=== PATIENT | male | born 1990 | race Caucasian/White ===

== ENCOUNTER 2020-04-26 18:37 | Emergency (ER) | payer OTHER, SELFPAY ==
[2020-04-26 18:41] VITALS: BP 153/94; PULSE 93; RESP 17; TEMP 35.9; O2SAT 97
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
[2020-04-26 20:09] LABS: HIV 1/2 Ab P24 Ag Result Negative (Negative)
[2020-04-26 20:57] LABS: Hepatitis B Surface Antigen Negative (Negative)
[2020-04-26 21:02] LABS: HAV RESULT Negative (Negative); Hepatitis B Core IgM Result Negative (Negative)
[2020-04-26 21:14] LABS: Hepatitis C Virus Antibody Negative (Negative)
== END 2020-04-26 19:38 | disposition home or self-care (01) ==
LOC: ANHED 19:21
PROVIDERS: Emergency Provider Emergency Medicine
DX: S60.512A Abrasion of left hand, initial encounter (principal); Y04.1XXA Assault by human bite, initial encounter
CPT/HCPCS: 36415; 80074; 86703; 99283; G0432

== ENCOUNTER 2023-12-28 14:35 | Outpatient (CLI) | payer OTHER, SELFPAY ==
[2023-12-28 15:00] LABS: Basophils Percent Auto 0.7 % (0.2-1.2); Eosinophils Absolute Auto 0.1 K/mm3 (0-0.3); Hematocrit 49.8 % (42.0-52.0); Hemoglobin 18.1 g/dL (14.0-18.0); Immature Granulocyte Absolute 0.01 K/mm3 (0.00-0.031); Immature Granulocyte Percent A 0.2 % (0-0.5); Lymphocytes Absolute Auto 1.45 K/mm3 (0.9-3.2); Lymphocytes Percent Auto 25.1 % (18.3-44.2); Mean Corpuscular HGB Conc 36.3 g/dl (32-36); Mean Corpuscular Hemoglobin 32.2 pg (26-34); Mean Corpuscular Volume 88.6 fl (80-100); Mean Platelet Volume 10.3 fl (7.4-10.4); Monocytes Absolute Auto 0.3 K/mm3 (0.1-0.6); Monocytes Percent Auto 5.4 % (2.6-8.5); Neutrophils Absolute Auto 3.9 K/mm3 (1.3-6.7); Neutrophils Percent Auto 67.6 % (45.5-73.1); Platelet Count Result 142 k/mm3 (150-375); Red Blood Count 5.62 M/mm3 (4.6-6.20); Red Cell Distribution Width 11.9 % (11.5-14.5); White Blood Count 5.8 K/mm3 (4.5-10.0)
[2023-12-28 16:54] LABS: Iron 105 ug/dL (49-181)
[2023-12-28 16:56] LABS: Alanine Aminotransferase 30 U/L (6-50); Albumin Level 4.8 g/dL (3.5-5.1); Alkaline Phosphatase 57 U/L (38-126); Anion Gap 12 mmol/L (4-12); Aspartate Amino Transferase 22 U/L (17-59); Bilirubin,Total 0.8 mg/dL (0.2-1.3); Blood Urea Nitrogen 27 mg/dL (9-20); Calcium 9.6 mg/dL (8.4-10.2); Carbon Dioxide 27 mmol/L (22-30); Chloride 101 mmol/L (98-107); Estimated Glomerular Filt Rate 58; Glucose 91 mg/dL (65-110); Potassium 4.2 mmol/L (3.4-5.0); Sodium 140 mmol/L (137-145)
[2023-12-28 17:05] LABS: Percent Iron Saturation 36 % (20-50)
[2023-12-28 18:03] LABS: Folic Acid 11.9 ng/mL (2.76->20)
[2024-01-01 10:09] LABS: Methylmalonic Acid 153 nmol/L (55-335)
[2024-01-04 11:22] LABS: Soluble Transferrin Receptor 2.16 mg/L (0.76-1.76)
[2024-01-04 19:58] LABS: Platelet Antibody, Direct NEGATIVE (NEGATIVE)
== END 2023-12-28 14:36 | disposition home or self-care (01) ==
LOC: ANHLAB 14:37
PROVIDERS: Nurse Practitioner Family; Visit Provider Internal Medicine Hematology & Oncology
DX: D69.6 Thrombocytopenia, unspecified (principal); D50.9 Iron deficiency anemia, unspecified
CPT/HCPCS: 36415; 80053; 82607; 82728; 82746; 83540; 83550; 83921; 84238; 85025; 86023

== ENCOUNTER 2024-01-11 10:32 | Outpatient (CLI) | payer OTHER, SELFPAY ==
--- NOTE | ~2024-01-11 | US_ITS ---
Abdominal Sonogram: Real-time sonographic imaging of the abdomen was performed. Clinical History: Thrombocytopenia Findings: The liver appears normal with no evidence of mass lesion or bile duct dilatation. Main por isacc vein demonstrates normal direction of flow. The spleen is mildly enlarged, measuring 14.3 cm in l ength. The gallbladder is well distended, and appears normal with no evidence of gallstone or wall t hickening. The common bile duct measures 4 mm. The visualized pancreas, aorta, and IVC are unremarka ble. The right kidney measures 11.5 cm in length and the left kidney measures 11.2 cm. There is no hydronephrosis or renal calculus. Impression: Mild splenomegaly. Reviewed, dictated and finalized at location . Impression: Mild splenomegaly.
== END 2024-01-11 10:33 | disposition home or self-care (01) ==
LOC: ANHIMG 10:36
PROVIDERS: PCP Nurse Practitioner Family; Visit Provider Nurse Practitioner Family
DX: R16.1 Splenomegaly, not elsewhere classified (principal); D69.6 Thrombocytopenia, unspecified
CPT/HCPCS: 76700

== ENCOUNTER 2024-07-13 11:13 | Outpatient (CLI) | payer OTHER, SELFPAY ==
[2024-07-13 11:27] LABS: Basophils Percent Auto 0.5 % (0.2-1.2); Eosinophils Absolute Auto 0.1 K/mm3 (0-0.3); Eosinophils Percent Auto 1.1 % (0-4.4); Hematocrit 47.8 % (42.0-52.0); Hemoglobin 17.3 g/dL (14.0-18.0); Immature Granulocyte Absolute 0.01 K/mm3 (0.00-0.031); Immature Granulocyte Percent A 0.2 % (0-0.5); Immature Platelet Fraction Pct 4.2 % (0.9-11.2); Lymphocytes Absolute Auto 1.56 K/mm3 (0.9-3.2); Lymphocytes Percent Auto 28.5 % (18.3-44.2); Mean Corpuscular HGB Conc 36.2 g/dl (32-36); Mean Corpuscular Hemoglobin 31.9 pg (26-34); Mean Platelet Volume 10.1 fl (7.4-10.4); Monocytes Absolute Auto 0.4 K/mm3 (0.1-0.6); Monocytes Percent Auto 6.6 % (2.6-8.5); Neutrophils Absolute Auto 3.5 K/mm3 (1.3-6.7); Neutrophils Percent Auto 63.1 % (45.5-73.1); Platelet Count Result 141 k/mm3 (150-375); Red Blood Count 5.43 M/mm3 (4.6-6.20); White Blood Count 5.5 K/mm3 (4.5-10.0)
[2024-07-13 11:28] LABS: Blood Urea Nitrogen 24 mg/dL (8-26); Carbon Dioxide 27 mmol/L (22-30); Chloride 103 mmol/L (98-109); Estimated Glomerular Filt Rate 54; Glucose 97 mg/dL (70-105); Ionized Calcium (POC) 1.27 mmol/L (1.11-1.31); Potassium 4.1 mmol/L (3.5-4.9); Sodium 141 mmol/L (138-146)
--- OUTSIDE RECORDS SUMMARY | 2024-07-13 11:50 | XMS_ITS | Data Portability ---
Author Organization [facility] [employer], Main Office Address [address] [place] [address] Assessment No assessment recorded. Plan of Treatment Reminders Order Date Submit Date Provider Last Modified By Organization Details Last Modified Time Details Appointments None recorded . Lab lipid panel, serum 024 10/26/[address] (Lab), [address] [place], [address], 4 08:03:07 CMP, serum or plasma 024 10/26/[address] (Lab), [address] [place], [address], 4 08:03:07 TSH, serum or plasma 024 10/26/[address] (Lab), [address] [place], [address], 4 08:03:08 glycohem oglobin, total, blood 024 10/26/[address] (Lab), [address] [place], [address], 4 08:03:07 CBC 024 10/26/[address] (Lab), [address] [place], [address], 4 08:03:08 Referral None recorded . Procedures None recorded . Surgeries None recorded . Imaging None recorded . Medication Orders None recorded . Patient TargetsNo targets recorded. Patient InstructionsNo instructions recorded. Reason for Referral None Reported. Results Created Date Observation Date Name Description Value Unit Range Abnormal Flag Note LastModifiedBy Organization Detail LastModifiedTime 10/25/19 24 10/28/2023 CBC WITH DIFFE RENTI AL/PL ATELE T WBC 5.5 x10e3 /uL 3.4-10 .8 Not Available [facility] ([facility]) [address] [place], [address], 11/02/2023 03:07:47 10/25/19 24 10/28/2023 CBC WITH DIFFE RENTI AL/PL ATELE T RBC 5.58 x10e6 /uL 4.14-5 .80 Not Available [facility] ([facility]) [address] [place], [address], 11/02/2023 03:07:47 10/25/19 24 10/28/2023 CBC WITH DIFFE RENTI AL/PL ATELE T hemoglobin 18.0 g/dL 13.0-1 7.7 above high normal Not Available [facility] ([facility]) [address] [place], [address], 11/02/2023 03:07:47 10/25/19 24 10/28/2023 CBC WITH DIFFE RENTI AL/PL ATELE T hematocrit 50.0 % 37.5-5 1.0 Not Available [facility] ([facility]) [address] [place], [address], 11/02/2023 03:07:47 10/25/19 24 10/28/2023 CBC WITH DIFFE RENTI AL/PL ATELE T MCV 90 fL 79-97 Not Available [facility] ([facility]) [address] [place], [address], 11/02/2023 03:07:47 10/25/19 24 10/28/2023 CBC WITH DIFFE RENTI AL/PL ATELE T MCH 32.3 pg 26.6-3 3.0 Not Available [facility] ([facility]) [address] [facility], [place], [address], 11/02/2023 03:07:47 10/25/19 24 10/28/2023 CBC WITH DIFFE RENTI AL/PL ATELE T MCHC 36.0 g/dL 31.5-3 5.7 above high normal Not Available [facility] ([facility]) [address] [facility], [place], [address], 11/02/2023 03:07:47 10/25/19 24 10/28/2023 CBC WITH DIFFE RENTI AL/PL ATELE T RDW 12.6 % 11.6-1 5.4 Not Available [facility] ([facility]) [address] [facility], [place], [address], 11/02/2023 03:07:47 10/25/19 24 10/28/2023 CBC WITH DIFFE RENTI AL/PL ATELE T platelets 132 x10e3 /uL 150-45 0 below low normal Not Available [facility] ([facility]) [address] [facility], [place], [address], 11/02/2023 03:07:47 10/25/19 24 10/28/2023 CBC WITH DIFFE RENTI AL/PL ATELE T neutrophils 65 % not estab. Not Available [facility] ([facility]) [address] [facility], [place], [address], 11/02/2023 03:07:47 10/25/19 24 10/28/2023 CBC WITH DIFFE RENTI AL/PL ATELE T lymphs 26 % not estab. Not Available [facility] ([facility]) [address] [facility], [place], [address], 11/02/2023 03:07:47 10/25/19 24 10/28/2023 CBC WITH DIFFE RENTI AL/PL ATELE T monocytes 6 % not estab. Not Available [facility] ([facility]) [address] [facility], [place], [address], 11/02/2023 03:07:47 10/25/19 24 10/28/2023 CBC WITH DIFFE RENTI AL/PL ATELE T eos 1 % not estab. Not Available [facility] ([facility]) [address] [facility], [place], [address], 11/02/2023 03:07:47 10/25/19 24 10/28/2023 CBC WITH DIFFE RENTI AL/PL ATELE T basos 1 % not estab. Not Available [facility] ([facility]) [address] [place], [address], 11/02/2023 03:07:47 10/25/19 24 10/28/2023 CBC WITH DIFFE RENTI AL/PL ATELE T immature cells MEETING COORDINATOR Not Available [facility] ([facility]) [address] [place], [address], 11/02/2023 03:07:47 10/25/19 24 10/28/2023 CBC WITH DIFFE RENTI AL/PL ATELE T neutrophils (absolute) 3.7 x10e3 /uL 1.4-7. 0 Not Available [facility] ([facility]) [address] [place], [address], 11/02/2023 03:07:47 10/25/19 24 10/28/2023 CBC WITH DIFFE RENTI AL/PL ATELE T lymphs (absolute) 1.4 x10e3 /uL 0.7-3. 1 Not Available [facility] ([facility]) [address] [place], [address], 11/02/2023 03:07:47 10/25/19 24 10/28/2023 CBC WITH DIFFE RENTI AL/PL ATELE T monocytes(ab solute) 0.3 x10e3 /uL 0.1-0. 9 Not Available [facility] ([facility]) [address] [facility], [place], [address], 11/02/2023 03:07:47 10/25/19 24 10/28/2023 CBC WITH DIFFE RENTI AL/PL ATELE T eos (absolute) 0.0 x10e3 /uL 0.0-0. 4 Not Available [facility] ([facility]) [address] [facility], [place], [address], 11/02/2023 03:07:47 10/25/19 24 10/28/2023 CBC WITH DIFFE RENTI AL/PL ATELE T baso (absolute) 0.0 x10e3 /uL 0.0-0. 2 Not Available [facility] ([facility]) [address] [facility], [place], [address], 11/02/2023 03:07:47 10/25/19 24 10/28/2023 CBC WITH DIFFE RENTI AL/PL ATELE T immature granulocytes 1 % not estab. Not Available [facility] ([facility]) [address] [facility], [place], [address], 11/02/2023 03:07:47 10/25/19 24 10/28/2023 CBC WITH DIFFE RENTI AL/PL ATELE T immature grans (abs) 0.0 x10e3 /uL 0.0-0. 1 Not Available [facility] ([facility]) [address] [place], [address], 11/02/2023 03:07:47 10/25/19 24 10/28/2023 CBC WITH DIFFE RENTI AL/PL ATELE T NRBC MEETING COORDINATOR Not Available [facility] ([facility]) [address] [place], [address], 11/02/2023 03:07:47 10/25/19 24 10/28/2023 CBC WITH DIFFE RENTI AL/PL ATELE T hematology comments: MEETING COORDINATOR Not Available [facility] ([facility]) [address] [place], [address], 11/02/2023 03:07:47 10/25/19 24 10/28/2023 COMP. METAB OLIC PANEL (14) glucose 116 mg/dL 70-99 above high normal Not Available [facility] ([facility]) [address] [facility] [place], [address], 11/02/2023 03:07:47 10/25/19 24 10/28/2023 COMP. METAB OLIC PANEL (14) BUN 21 mg/dL 6-20 above high normal Not Available [facility] ([facility]) [address] [facility] [place], [address], 11/02/2023 03:07:47 10/25/19 24 10/28/2023 COMP. METAB OLIC PANEL (14) creatinine 1.15 mg/dL 0.76-1 .27 Not Available [facility] ([facility]) [address] [place], [address], 11/02/2023 03:07:47 10/25/19 24 10/28/2023 COMP. METAB OLIC PANEL (14) eGFR 86 mL/mi n/1.7 3 >59 Not Available [facility] ([facility]) [address] [facility] [place], [address], 11/02/2023 03:07:47 10/25/19 24 10/28/2023 COMP. METAB OLIC PANEL (14) BUN/creatini ne ratio 18 9-20 Not Available [facility] ([facility]) [address] [place], [address], 11/02/2023 03:07:47 10/25/19 24 10/28/2023 COMP. METAB OLIC PANEL (14) sodium 142 mmol/ L 134-14 4 Not Available [facility] ([facility]) [address] [facility] [place], [address], 11/02/2023 03:07:47 10/25/19 24 10/28/2023 COMP. METAB OLIC PANEL (14) potassium 3.6 mmol/ L 3.5-5. 2 Not Available [facility] ([facility]) [address] [place], [address], 11/02/2023 03:07:47 10/25/19 24 10/28/2023 COMP. METAB OLIC PANEL (14) chloride 105 mmol/ L 96-106 Not Available [facility] ([facility]) [address] [place], [address], 11/02/2023 03:07:47 10/25/19 24 10/28/2023 COMP. METAB OLIC PANEL (14) carbon dioxide, total 19 mmol/ L 20-29 below low normal Not Available [facility] ([facility]) [address] [place], [address], 11/02/2023 03:07:47 10/25/19 24 10/28/2023 COMP. METAB OLIC PANEL (14) calcium 9.9 mg/dL 8.7-10 .2 Not Available [facility] ([facility]) [address] [place], [address], 11/02/2023 03:07:47 10/25/19 24 10/28/2023 COMP. METAB OLIC PANEL (14) protein, total 7.2 g/dL 6.0-8. 5 Not Available [facility] ([facility]) [address] [place], [address], 11/02/2023 03:07:47 10/25/19 24 10/28/2023 COMP. METAB OLIC PANEL (14) albumin 4.8 g/dL 4.1-5. 1 Not Available [facility] ([facility]) [address] [place], [address], 11/02/2023 03:07:47 10/25/19 24 10/28/2023 COMP. METAB OLIC PANEL (14) globulin, total 2.4 g/dL 1.5-4. 5 Not Available [facility] ([facility]) [address] [facility] [place], [address], 11/02/2023 03:07:47 10/25/19 24 10/28/2023 COMP. METAB OLIC PANEL (14) A/G ratio 2.0 1.2-2. 2 Not Available [facility] ([facility]) [address] [facility] [place], [address], 11/02/2023 03:07:47 10/25/19 24 10/28/2023 COMP. METAB OLIC PANEL (14) bilirubin, total 0.8 mg/dL 0.0-1. 2 Not Available [facility] ([facility]) [address] [facility] [place], [address], 11/02/2023 03:07:47 10/25/19 24 10/28/2023 COMP. METAB OLIC PANEL (14) alkaline phosphatase 71 IU/L 44-121 Not Available [facility] ([facility]) [address] [facility] [place], [address], 11/02/2023 03:07:47 10/25/19 24 10/28/2023 COMP. METAB OLIC PANEL (14) AST (SGOT) 22 IU/L 0-40 Not Available [facility] ([facility]) [address] [facility] [place], [address], 11/02/2023 03:07:47 10/25/19 24 10/28/2023 COMP. METAB OLIC PANEL (14) ALT (SGPT) 29 IU/L 0-44 Not Available [facility] ([facility]) [address] [facility] [place], [address], 11/02/2023 03:07:47 10/25/19 24 10/28/2023 LIPID PANEL cholesterol, total 191 mg/dL 100-19 9 Not Available [facility] ([facility]) [address] [facility], [place], [address], 11/02/2023 03:07:48 10/25/19 24 10/28/2023 LIPID PANEL triglyceride s 96 mg/dL 0-149 Not Available [facility] ([facility]) [address] [facility] [place], [address], 11/02/2023 03:07:48 10/25/19 24 10/28/2023 LIPID PANEL HDL cholesterol 43 mg/dL >39 Not Available [facility] ([facility]) [address] [facility] [place], [address], 11/02/2023 03:07:48 10/25/19 24 10/28/2023 LIPID PANEL VLDL cholesterol ania 18 mg/dL 5-40 Not Available [facility] ([facility]) [address] [place], [address], 11/02/2023 03:07:48 10/25/19 24 10/28/2023 LIPID PANEL LDL chol calc ([facility]) 130 mg/dL 0-99 above high normal Not Available [facility] ([facility]) [address] [place], [address], 11/02/2023 03:07:48 10/25/19 24 10/28/2023 LIPID PANEL comment: MEETING COORDINATOR Not Available [facility] ([facility]) [address] [facility], [place], [address], 11/02/2023 03:07:48 10/25/19 24 11/02/2023 THYRO ID FUNCT ION ADULT TSH-icma 1.9 uu/mL Refer ence Range : Non-P regna nt Adult 0.450 -4.50 0 Not Available [facility] [address] [place] [address], [address], 11/02/2023 03:07:49 10/25/19 24 11/02/2023 THYRO ID FUNCT ION ADULT thyroxine (T-4), serum 8.6 ug/dL Refer ence Range : Adult s: 4.2 - 13.0 Not Available [facility] [address] [facility], [place], [address], 11/02/2023 03:07:49 10/25/19 24 11/02/2023 THYRO ID FUNCT ION ADULT triiodothyro nine (T-3), serum 129 NG/dL Refer ence Range : Adult s: 55 - 170 Not Available [facility] [address] [facility], [place], [address], 11/02/2023 03:07:49 10/25/1910/28/2023 HEMOG LOBIN A1C hemoglobin A1C 4.6 % 4.8-5. 6 below low normal Predi abete s: 5.7 - 6.4 Diabe otoniel: >6.4 Glyce fidelia contr ol for adult s with diabe otoniel: <7.0 Not Available [facility] ([facility]) [address] [facility], [place], [address], 11/02/2023 03:07:49 01/11/2001/11/2024 awa DAMIAN en No observ ation record ed. [email or web address] [address], [place], [address], 01/25/2024 08:43:17 Result Notes None recorded. Problems Name Problem SNOMED Code Status Onset Date Resolution Date Notes Provider Name and Address Organization Details Recorded Time Elevated blood-pressure reading without diagnosis of hypertension 429071537 Active 2023 CAROL Longoria [address], [address], [place], [address], [employer] 4 15:56:38 Thrombocytopen ic disorder 274245892 Active 2023 REGGIE Longoria-Tony [address], [address], [place], [address], [employer] 4 12:25:45 Notes:Stress Problem Notes None recorded. Procedures Surgical History None recorded. Imaging Results Imaging Date Name Status LastModified by Organiz ation Details LastModified Time 01/11/2024 US, abdomen completed [email or web address] [facility] [address] [facility] [facility] [address], [place], [address], 01/25/2024 08:43:17 Procedure Notes None recorded. Medical Equipment None Reported. Allergies No known drug allergies Medications Name Sig Start Date Stop Date Status Note LastModified by Organization Details LastModified Time Tubersol 5 tub. unit/0.1 mL intradermal injection solution Inject 0.1 mL every day by intraderm al route for 1 day. 07/08 completed Not Available Not Available Not Available clotrimazol e 1 % topical cream APPLY TO THE AFFECTED AND SURROUNDI NG AREAS OF SKIN BY TOPICAL ROUTE 2 TIMES PER DAY IN THE MORNING AND EVENING 02/07 completed Not Available Not Available Not Available Vitals Date Recorded Body mass index (BMI) Body mass index (BMI) Body height Body height Oxygen saturation Oxygen saturation in Arterial blood by Pulse oximetry Oxygen saturation Oxygen saturation in Arterial blood by Pulse oximetry Heart rate Heart rate Respiratory rate Body temperature Body temperature Body weight Body weight Systolic blood pressure Diastolic blood pressure Systolic blood pressure Diastolic blood pressure Provider Name and Address Organization Details Last Updated DateTime 3 28.6 kg/m2 28.6 kg/m2 193.04 cm 193.04 cm 98 % 98 % 98 % 98 % 75 /min 61 /min 16 /min 97.6 [degF] 97.7 [degF] 938578. 21 g 690698. 28 g 118 mm[Hg] 72 mm[Hg] 136 mm[Hg] 93 mm[Hg] Not Available [employer] 3 05:52:52 Date Recorded Body weight Body temperature Oxygen saturation Oxygen saturation in Arterial blood by Pulse oximetry Heart rate Systolic blood pressure Diastolic blood pressure Provider Name and Address Organization Details Last Updated DateTime 4 946461. 61 g 97.9 [degF] 98 % 98 % 89 /min 148 mm[Hg] 74 mm[Hg] Eli Covarrubias RN [place] [employer] 4 15:39:20 Social History Question Answer Notes LastModified by Organizat ion Details LastModified Time Tobacco Smoking Status Former Smoker Not Available [employer] 08/04/2022 05:51:01 What Is Your Level Of Alcohol Consumption? Moderate [id number] Information not available 08/04/2022 What Is Your Level Of Caffeine Consumption? Moderate [id number].[id number] Information not available 08/04/2022 What Type Of Diet Are You Following? REGULAR [id number].[id number] 6554 Information not available 08/04/2022 What Is The Highest Grade Or Level Of School You Have Completed Or The Highest Degree You Have Received? 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 No [id number].[id number] Information not available 08/04/2022 What Is The Fluoride Status Of Your Home? Unknown [id number].[id number] 6673 Information not available 08/04/2022 Do You Use Insect Repellent Routinely? No [id number].[id number] 9753 Information not available 08/04/2022 Where Do You Live? [place]House MIGRATION.[id number] 6739 Information not available 08/04/2022 Do You Have Any Pets? Yes [id number].[id number] Information not available 08/04/2022 What Is Your Relationship Status? [id number].[id number] 1195 Information not available 08/04/2022 Do You Use Your Seat Belt Or Car Seat Routinely? Yes [id number].[id number] 1278 Information not available 08/04/2022 Do You Have Smoke And Carbon Monoxide Detectors In Your Home? Yes MIGRATION.429283 8210 Information not available 08/04/2022 At What Age Did You Start Smoking Tobacco? 24 [id number] Information not available 10/26/2023 Are You Passively Exposed To Smoke? No [id number].[id number] Information not available 08/04/2022 Are There Any Smokers In Your House? No MIGRATION.453762 7795 Information not available 08/04/2022 Do You Feel Stressed (tense, Restless, Nervous, Or Anxious, Or Unable To Sleep At Night)? VE1482-3 [id number].[id number] 6300 Information not available 08/04/2022 Do You Use Sunscreen Routinely? Yes [id number].812204 2983 Information not available 08/04/2022 Are You Currently In School? Yes [id number].803834 3140 Information not available 08/04/2022 Do You Have Any Dietary Restrictions? No MIGRATION.304013 9510 Information not available 08/04/2022 Sex: Male Functional Status Question Answer Note LastModified by Organizat ion Details LastModified Time What is your exercise level? Moderate [id number] Information not available 08/04/2022 Mental Status None recorded. Family History Relationship Description Onset Age of this Age Resolved Age Notes LastModified by Organization Details LastModified Time Father Myocardial infarction [id number] Not available 15:40:11 Paternal Grandfather Malignant tumor of esophagus [id number] Not available 15:40:36 Medical History No medical history recorded. Immunizations Vaccine Type Date Status Note Provider Nam e and Address Organization Details Recorded Time OPV 8 completed Not Available [facility] 08/04/2022 05:56:47 DTaP 5 completed Not Available [facility] 08/04/2022 05:56:47 OPV 2 completed Not Available [facility] 08/04/2022 05:56:47 DTaP 1 completed Not Available [facility] 08/04/2022 05:56:47 DTaP 1 completed Not Available [facility] 08/04/2022 05:56:47 OPV 1 completed Not Available [facility] 08/04/2022 05:56:47 Hib, unspecified formulation 1 completed Not Available [facility] 08/04/2022 05:56:47 DTaP 1 completed Not Available [facility] 08/04/2022 05:56:47 OPV 1 completed Not Available [facility] 08/04/2022 05:56:47 Influenza, split virus, quadrivalent, preservative 0 completed Not Available [facility] 08/04/2022 05:56:48 Tdap 5 completed Not Available [facility] 08/04/2022 05:56:48 Influenza, split virus, quadrivalent, PF 0 completed Not Available [facility] 08/04/2022 05:56:48 Past Encounters Encounter ID Performer Location Encounter Start Date Encounter Closed Date Diagnosis/Indication Diagnosis SNOMED-CT Code Diagnosis ICD10 Code Diagnosis Note [id number] [facility] Juan [address] [place] [address] 06/23/2021 00:00:00 06/23/2021 10:03:46 [id number] [facility] [address] [place] [address] 07/08/2022 00:00:00 07/08/2022 10:06:[id number] [facility] [address] [facility] [address] [address] [place] [address] 10/26/2023 15:32:01 10/26/2023 16:12:17 Elevated blood-pressure reading without diagnosis of hypertension 845939568 R03.0 -never been told he has high bp before-usu ally in the 120s over 86-148/74, 89 Adult heal th examination 075500821 Z00.00 Encouraged fresh fruits and veggies-me d intakeIncr ease daily water intake-1 gal/dayEnc ourage 30 mins of daily exercise-d aily Hyperlipid emia screening 761362058 Z13.220 Diabetes m ellitus screening 123725790 Z13.1 Thyroid di sorder screening 983550265 Z13.29 Anemia screening 9144744 07 Z13.0 Health Concerns Section Related Observation LastModified by Organization Detai ls LastModified Time None Recorded Concern Status LastModified by Organization Details LastModified Time None Recorded Advance Directives Directive None Recorded Payers Encounter Date Sequence Insurance Name Policy Number Policy Lemon Covered Member ID Lemon Member ID Guarantor Name 10/26/2023 1 [facility] [id number] Ramírez Avila [id number] Ramírez Avila Notes Date Note Type Note Provider Name and Address Organization Details Recorded Time 10/26/2023 text/html Pt is here for annual physical Jhonny Marsh [employer]ELDER [employer] [address] [facility] [facility] [address], [place], [address], [place] [employer] 10/26/2023 16:07:55
--- OUTSIDE RECORDS SUMMARY | 2024-07-13 11:50 | XMS_ITS | Clinical Summary ---
Author Organization [facility] Molly Mars Address [address] [place] [address] Care Team Providers Care Children'S Entertainer Name Role Phone Unavailable Primary Care Provider Unavailabl e Allergies No known active allergies Medications multivitamin (DAILY-TOMI) tablet Take 1 Tablet by mouth daily. Active Active Problems No known active problems Encounters Date Type Department Care Team Description 07/13/2024 11:30 AM SQL PROGRAMMER Office Visit [facility] - [place] [address] [place] [address] Timi Fairbanks MD Arrived 06/27/2024 External Device Data STL ABSTRACTION Provider, Abstract 06/27/2024 External Device Data STL ABSTRACTION Provider, Abstract 06/20/2024 External Device Data STL ABSTRACTION Provider, Abstract from Last 3 Months Family History Medical History Relation Name Comments No Known Problems Brother 1 No Known Problems Brother 2 No Known Problems Father No Known Problems Mother Relation Name Status Comments Brother 1 Alive Brother 2 Alive Child 1 Child 2 expected tuesday Father Alive Mother Alive Social History Tobacco Use Types Packs/Day Years Used Date Smoking Tobacco: Never Smokeless Tobacco: Former Chew Quit: 11/10/2022 Tobacco Cessation:Counseling Given: Not Answered Alcohol Use Standard Drinks/Week Comments Yes 0 (1 standard drink = 0.6 oz pur e alcohol) Socially Sex and Gender Information Value Date Recorded Sex Assigned at Not on file Legal Sex Male 8:32 AM CDT Gender Identity Not on file Sexual Orientation Not on file Last Filed Vital Signs Vital Sign Reading Time Taken Comments Blood Pressure 161/82 07/13/2024 11:38 AM SQL PROGRAMMER Pulse 60 07/13/2024 11:38 AM SQL PROGRAMMER Temperature 36.6 C (97.8 F) 07/13/2024 11:38 AM SQL PROGRAMMER Respiratory Rate 16 07/13/2024 11:38 AM SQL PROGRAMMER Oxygen Saturation 98% 07/13/2024 11:38 AM SQL PROGRAMMER Inhaled Oxygen Concentration - - Weight 106.6 kg (235 lb) 07/13/2024 11:38 AM SQL PROGRAMMER Height 193 cm (6' 4 ) 12/28/2023 1:48 PM CDT Body Mass Index 28.61 12/28/2023 1:48 PM CDT Plan of Treatment Health Maintenance Due Date Last Done Comments HEPATITIS B VACCINES (1 of 3 - 19+ 3-dose series) 2009 INFLUENZA VACCINE (#1) 2024 02/25/2020, 2019 Preventative Visit- Commercial 06/06/2024 DTAP/TDAP/TD VACCINES (6 - Td or Tdap) 04/06/2025 04/06/2015, 02/14/1995, 1990, Additional history exists HPV VACCINES Aged Out No longer eligi ble based on patient's age to complete this topic Insurance
== END 2024-07-13 11:14 | disposition home or self-care (01) ==
LOC: ANHLAB 11:14
PROVIDERS: PCP Nurse Practitioner Family; Visit Provider Internal Medicine Hematology & Oncology
DX: D69.6 Thrombocytopenia, unspecified (principal)
CPT/HCPCS: 36415; 80047; 85025; 85055

== ENCOUNTER 2025-05-16 16:03 | Emergency (ER) | payer OTHER, SELFPAY ==
--- NOTE | ~2025-05-16 | CT_ITS ---
EXAMINATION: CT brain wo con DATE: 05/16/2025 16:39 INDICATION: Head injury. Details not available. TECHNIQUE: Computed tomography (CT) of the head was performed without intravenous contrast. The mA was adjusted according to patient size. Iterative reconstruction technique was employed. The dose-length product was 605.33 mGy-cm. COMPARISON: None FINDINGS: No acute intracranial bleed or extra-axial collection. No ventriculomegaly or midline shift. No effacement of sulci. No acute cranial fracture. IMPRESSION: 1. No acute intracranial lesions in this limited noncontrast CT head. Reviewed, dictated and finalized at location T. K9 HANDLER
[2025-05-16 16:19] VITALS: BP 164/99; PULSE 70; RESP 16; TEMP 36.4; O2SAT 98
--- NOTE | 2025-05-16 16:36 | PC.NURSE ---
Pt to CT scan at this time.
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
[2025-05-16 17:44] VITALS: BP 132/84; PULSE 80; RESP 16; O2SAT 98
--- OUTSIDE RECORDS SUMMARY | 2025-05-16 19:31 | XMS_ITS | Continuity of Care Document ---
Author Organization [place] [facility], [facility] [place] [facility] Address [address] [place] [address] Assessment No assessment recorded. Plan of Treatment Reminders Order Date Submit Date Provider Last Modified By Organization Details Last Modified Time Details Appointments None recorded. Lab CBC w/ auto diff 2024 025 TOMMIE [facility], [address], [address], [place], [address], 5 10:08:39 lipid panel, serum 2024 025 [facility], 2022 [address], [address], [place], [address], 5 08:13:24 TSH + free T4, serum 2024 025 [facility], 2022 [address], [address], [place], [address], 5 08:13:24 HbA1c (hemoglobi n A1c), blood 2024 025 [facility], [address], [address], [place], [address], 5 08:13:24 vitamin D, 25-hydroxy , total, serum 2024 025 [facility], [address], [address], [place], [address], 5 08:13:24 CMP, serum or plasma 2024 025 [email or web address], [address], [address], [place], [address], 5 08:13:24 cobalamin and folate panel, serum 2024 025 [email or web address], [address], [address], [place], [address], 5 08:13:24 Referral None recorded. Procedures None recorded. Surgeries None recorded. Imaging None recorded. Medication Orders None recorded. Patient TargetsNo targets recorded. Patient InstructionsNo instructions recorded. Reason for Referral None Reported. Results Created Date Observation Date Name Description Value Unit Range Abnormal Flag Note LastModifiedBy Organization Detail LastModifiedTime Result Notes None recorded. Problems Name Problem SNOMED Code Status Onset Date Resolution Date Notes Provider Name and Address Organization Details Recorded Time Elevated blood-pressure reading without diagnosis of hypertension 946816138 Active 2023 REGGIE Longoria-Tony [address], [address], [place], [address], [employer] 4 15:56:38 Thrombocytopen ic disorder 791979795 Active 2023 REGGIE Longoria-C [address], [address], [place], [address], [employer] 4 12:25:45 Notes:Stress Problem Notes None recorded. Medical Equipment None Reported. [...] Available Not Available Vitals Date Recorded Body weight Body mass index (BMI) Body height Body temperature Heart rate Respiratory rate Oxygen saturation Pain severity - 0-10 verbal numeric rating [Score] - Reported Systolic And Diastolic Provider Name and Address Organization Details Last Updated DateTime 5 483492. 33 g 27.4 kg/m2 193.04 cm 97.1 [degF] 52 /min 20 /min 98 % 0 156/80 mm[Hg] Raeann Chowdhury RN [place] [facility] [employer] [facility] 09:14:59 Social History Question Answer Notes LastModified by Organizat ion Details LastModified Time Tobacco Smoking Status Former Smoker Not Available [employer] 08/04/2022 05:51:01 Do You Have An Advance Directive? No Information not available 03/14/2025 What Is Your Level Of Caffeine Consumption? Moderate [id number] Information not available 08/04/2022 In The 14 Days Before Symptom Onset, Have You Had Close Contact With A Laboratory-confir med COVID-19 While That Case Was Ill? No Information not available 03/14/2025 In The 14 Days Before Symptom Onset, Have You Had Close Contact With A Person Who Is Under Investigation For COVID-19 While That Person Was Ill? No Information not available 03/14/2025 What Type Of Diet Are You Following? REGULAR [id number] Information not available 08/04/2022 What Is The Highest Grade Or Level Of School You Have Completed Or The Highest Degree You Have Received? FA09815-4 MIGRATION.83633 [id number] Information not available 08/04/2022 Have There Been Any Changes To Your Family Or Social Situation? No MIGRATION.[id number] Information not available 08/04/2022 What Is The Fluoride Status Of Your Home? Unknown MIGRATION.03676 [id number] Information not available 08/04/2022 Do You Use Insect Repellent Routinely? No MIGRATION.75608 [id number] Information not available 08/04/2022 Where Do You Live? [place]House MIGRATION.21181 84734 Information not available 08/04/2022 Do You Have A Medical Power Of Metal Window Frame Maker? No Information not available 03/14/2025 How Many Children Do You Have? 1 Information not available 03/14/2025 Do You Have Any Pets? Yes [id number].50298 [id number] Information not available 08/04/2022 What Is Your Relationship Status? MIGRATION.78884 89934 Information not available 08/04/2022 Do You Use Your Seat Belt Or Car Seat Routinely? Yes MIGRATION.16231 30096 Information not available 08/04/2022 Do You Have Smoke And Carbon Monoxide Detectors In Your Home? Yes MIGRATION.85382 75229 Information not available 08/04/2022 At What Age Did You Start Smoking Tobacco? 24 [email or web address] Information not available 10/26/2023 Are You Passively Exposed To Smoke? No MIGRATION.01496 96516 Information not available 08/04/2022 Are There Any Smokers In Your House? No MIGRATION.57421 52640 Information not available 08/04/2022 Do You Use Sunscreen Routinely? Yes MIGRATION.37026 54240 Information not available 08/04/2022 Have You Recently Traveled Abroad? No Information not available 03/14/2025 Are You Currently In School? Yes MIGRATION.24853 22807 Information not available 08/04/2022 Do You Have Any Dietary Restrictions? No MIGRATION.78885 11925 Information not available 08/04/2022 Sex: Male Functional Status Question Answer Note LastModified by Organizat ion Details LastModified Time What is your level of alcohol consumption? 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 Moderate [id number] 26 Information not available 08/04/2022 Mental Status Question Answer Note LastModified by Organizat ion Details LastModified Time Do you feel stressed (tense, restless, nervous, or anxious, or unable to sleep at night)? [id number] [id number] 6 Information not available 08/04/2022 Family History Relationship Description Onset Age of this Age Resolved Age Notes LastModified by Organization Details LastModified Time Father Myocardial infarction [id number] Not available 15:40:11 Paternal Grandfather Malignant neoplasm of esophagus [email or web address] Not available 15:40:36 Medical History No medical history recorded. Immunizations Vaccine Type Date Status Note Provider Nam e and Address Organization Details Recorded Time Tdap 5 completed AISHWARYA Muniz, [place] [employer] [facility] [employer] 03/14/2025 10:18:27 OPV, trivalent 8 completed Not Available [facility] 08/04/2022 05:56:47 DTaP 5 completed Not Available [facility] 08/04/2022 05:56:47 OPV, trivalent 2 completed Not Available [facility] 08/04/2022 05:56:47 DTaP 1 completed Not Available [facility] 08/04/2022 05:56:47 DTaP 1 completed Not Available [facility] 08/04/2022 05:56:47 OPV, trivalent 1 completed Not Available [facility] 08/04/2022 05:56:47 Hib, unspecified formulation 1 completed Not Available [facility] 08/04/2022 05:56:47 DTaP 1 completed Not Available [facility] 08/04/2022 05:56:47 OPV, trivalent 1 completed Not Available [facility] 08/04/2022 05:56:47 Influenza, split virus, quadrivalent, preservative 0 completed Not Available [facility] 08/04/2022 05:56:48 Tdap 5 completed Not Available [facility] 08/04/2022 05:56:48 Influenza, split virus, quadrivalent, PF 0 completed AISHWARYA Muniz, [place] [employer] [facility] [employer] 03/14/2025 09:10:57 Past Encounters Encounter ID Performer Location Encounter Start Date Encounter Closed Date Diagnosis/Indication Diagnosis SNOMED-CT Code Diagnosis ICD10 Code Diagnosis IMO Codes Diagnosis Note [id number] Ludwin Padron MD [facility] [address] [address] 03/14/2025 08:46:23 03/14/2025 10:12:13 Physical examination 0217894 Z00.00 026650 [facility]ctor questions answered Administra tion of tetanus vaccine 417451775 Z23 Health Concerns Section Related Observation LastModified by Organization Detfaith ls LastModified Time None Recorded Concern Status LastModified by Organization Details LastModified Time None Recorded Payers Encounter Date Sequence Insurance Name Policy Number Policy Lemon Covered Member ID Lemon Member ID Guarantor Name 03/14/2025 1 [facility] [id number] Ramírez Avila [id number] Ramírez Avila Notes Date Note Type Note Provider Name and Address Organization Details Recorded Time 03/14/2025 text/html Ramírez Avila is a 34 year old male patient here today to establish care. He is overall healthy. He was seen by hematology for elevated HGB, all labs resulted normal. BP is elevated today, this is abnormal for him. 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 Flu shot: declinesCOVID vaccines: x2Tdap: 2014 REGGIE Mejias [address], [place], [address], [facility] 03/14/2025 10:00:00
--- OUTSIDE RECORDS SUMMARY | 2025-05-16 19:31 | XMS_ITS | Data Portability ---
Author Organization [place] - [facility] [employer], Main Office Address [address] [place] [address] Assessment No assessment recorded. Plan of Treatment Reminders Order Date Submit Date Provider Last Modified By Organization Details Last Modified Time Details Appointments None recorded. Lab CBC w/ auto diff 2024 025 [email or web address] [facility], 2022 [address], [address], [place], [address], 10:08:39 lipid panel, serum 2024 025 [email or web address] [facility], 2022 Jessica Tirado, [address], [place], [address], 08:13:24 TSH + free T4, serum 2024 025 [email or web address] [facility], 2022 Jessica Tirado, [address], [place], [address], 08:13:24 HbA1c (hemoglobi n A1c), blood 2024 025 [email or web address] [facility], 2022 Jessica Tirado, [address], [place], [address], 08:13:24 vitamin D, 25-hydroxy , total, serum 2024 025 [facility], 2022 Jessica Tirado, [address], [place], [address], 08:13:24 CMP, serum or plasma 2024 025 [facility], 2022 Jessica Tirado, [address], [place], [address], 5 08:13:24 cobalamin and folate panel, serum 2024 025 [facility], 2022 Jessica Tirado, [address], [place], [address], 5 08:13:24 lipid panel, serum [address] (Lab), [address] [place], [address], 4 08:03:07 CMP, serum or plasma [address] (Lab), [address] [place], [address], 4 08:03:07 TSH, serum or plasma [address] (Lab), [address] [place], [address], 4 08:03:08 glycohemog lobin, total, blood [address] (Lab), [address] [place], [address], 4 08:03:07 CBC [address] (Lab), [address] [place], [address], 4 08:03:08 Referral None recorded. Procedures None recorded. Surgeries [...] x10e3 /uL 3.4-10 .8 Not Available [facility] ([facility]) [address] [facility], [place], [address], 11/02/2023 03:07:47 10/25/19 24 10/28/2023 CBC WITH DIFFE RENTI AL/PL ATELE T RBC 5.58 x10e6 /uL 4.14-5 .80 Not Available [facility] ([facility]) [address] [place], [address], 11/02/2023 03:07:47 10/25/19 24 10/28/2023 CBC WITH DIFFE RENTI AL/PL ATELE T hemoglobin 18.0 g/dL 13.0-1 7.7 above high normal Not Available [facility] ([facility]) [address] [facility], [place], [address], 11/02/2023 03:07:47 10/25/19 24 10/28/2023 CBC WITH DIFFE RENTI AL/PL ATELE T hematocrit 50.0 % 37.5-5 1.0 Not Available [facility] ([facility]) [address] [place], [address], 11/02/2023 03:07:47 10/25/19 24 10/28/2023 CBC WITH DIFFE RENTI AL/PL ATELE T MCV 90 fL 79-97 Not Available [facility] ([facility]) [address] [place], [address], 11/02/2023 03:07:47 10/25/19 24 10/28/2023 CBC WITH DIFFE RENTI AL/PL ATELE T MCH 32.3 pg 26.6-3 3.0 Not Available [facility] ([facility]) [address] [place], [address], 11/02/2023 03:07:47 10/25/19 24 10/28/2023 CBC WITH DIFFE RENTI AL/PL ATELE T MCHC 36.0 g/dL 31.5-3 5.7 above high normal Not Available [facility] ([facility]) [address] [facility], [place], [address], 11/02/2023 03:07:47 10/25/19 24 10/28/2023 CBC WITH DIFFE RENTI AL/PL ATELE T RDW 12.6 % 11.6-1 5.4 Not Available [facility] ([facility]) [address] [facility], [place], [address], 11/02/2023 03:07:47 10/25/19 24 10/28/2023 CBC WITH DIFFE RENTI AL/PL ATELE T platelets 132 x10e3 /uL 150-45 0 below low normal Not Available [facility] ([facility]) [address] [facility], [place], [address], 11/02/2023 03:07:47 10/25/19 24 10/28/2023 CBC WITH DIFFE RENTI AL/PL ATELE T neutrophils 65 % not estab. Not Available [facility] ([facility]) [address] [facility], [place], [address], 11/02/2023 03:07:47 10/25/19 24 10/28/2023 CBC WITH DIFFE RENTI AL/PL ATELE T lymphs 26 % not estab. Not Available [facility] ([facility]) [address] [facility], [place], [address], 11/02/2023 03:07:47 10/25/19 24 10/28/2023 CBC WITH DIFFE RENTI AL/PL ATELE T monocytes 6 % not estab. Not Available [facility] ([facility]) [address] [facility], [place], [address], 11/02/2023 03:07:47 10/25/19 24 10/28/2023 CBC WITH DIFFE RENTI AL/PL ATELE T eos 1 % not estab. Not Available [facility] ([facility]) [address] [place], [address], 11/02/2023 03:07:47 10/25/19 24 10/28/2023 CBC WITH DIFFE RENTI AL/PL ATELE T basos 1 % not estab. Not Available [facility] ([facility]) [address] [facility], [place], [address], 11/02/2023 03:07:47 10/25/1910/28/2023 CBC WITH DIFFE RENTI AL/PL ATELE T immature cells FIELD MARKETING DIRECTOR Not Available [facility] ([facility]) [address] [place], [address], 11/02/2023 03:07:47 10/25/19 24 10/28/2023 CBC WITH DIFFE RENTI AL/PL ATELE T neutrophils (absolute) 3.7 x10e3 /uL 1.4-7. 0 Not Available [facility] ([facility]) [address] [place], [address], 11/02/2023 03:07:47 10/25/19 24 10/28/2023 CBC WITH DIFFE RENTI AL/PL ATELE T lymphs (absolute) 1.4 x10e3 /uL 0.7-3. 1 Not Available [facility] ([facility]) [address] [place], [address], 11/02/2023 03:07:47 10/25/19 24 10/28/2023 CBC WITH DIFFE RENTI AL/PL ATELE T monocytes(ab solute) 0.3 x10e3 /uL 0.1-0. 9 Not Available [facility] ([facility]) [address] [place], [address], 11/02/2023 03:07:47 10/25/19 24 10/28/2023 CBC WITH DIFFE RENTI AL/PL ATELE T eos (absolute) 0.0 x10e3 /uL 0.0-0. 4 Not Available [facility] ([facility]) [address] [facility], [place], [address], 11/02/2023 03:07:47 10/25/19 24 10/28/2023 CBC WITH DIFFE RENTI AL/PL ATELE T baso (absolute) 0.0 x10e3 /uL 0.0-0. 2 Not Available [facility] ([facility]) [address] [facility], [place], [address], 11/02/2023 03:07:47 10/25/19 24 10/28/2023 CBC WITH DIFFE RENTI AL/PL ATELE T immature granulocytes 1 % not estab. Not Available [facility] ([facility]) [address] [facility], [place], [address], 11/02/2023 03:07:47 10/25/19 24 10/28/2023 CBC WITH DIFFE RENTI AL/PL ATELE T immature grans (abs) 0.0 x10e3 /uL 0.0-0. 1 Not Available [facility] ([facility]) [address] [facility], [place], [address], 11/02/2023 03:07:47 10/25/19 24 10/28/2023 CBC WITH DIFFE RENTI AL/PL ATELE T NRBC FIELD MARKETING DIRECTOR Not Available [facility] ([facility]) [address] [facility], [place], [address], 11/02/2023 03:07:47 10/25/1910/28/2023 CBC WITH DIFFE RENTI AL/PL ATELE T hematology comments: FIELD MARKETING DIRECTOR Not Available [facility] ([facility]) [address] [facility], [place], [address], 11/02/2023 03:07:47 10/25/19 24 10/28/2023 COMP. METAB OLIC PANEL (14) glucose 116 mg/dL 70-99 above high normal Not Available [facility] ([facility]) [address] [place], [address], 11/02/2023 03:07:47 10/25/19 24 10/28/2023 COMP. METAB OLIC PANEL (14) BUN 21 mg/dL 6-20 above high normal Not Available [facility] ([facility]) [address] [place], [address], 11/02/2023 03:07:47 10/25/19 24 10/28/2023 COMP. METAB OLIC PANEL (14) creatinine 1.15 mg/dL 0.76-1 .27 Not Available [facility] ([facility]) [address] [place], [address], 11/02/2023 03:07:47 10/25/19 24 10/28/2023 COMP. METAB OLIC PANEL (14) eGFR 86 mL/mi n/1.7 3 >59 Not Available [facility] ([facility]) [address] [place], [address], 11/02/2023 03:07:47 10/25/19 24 10/28/2023 COMP. METAB OLIC PANEL (14) BUN/creatini ne ratio 18 9-20 Not Available [facility] ([facility]) [address] [place], [address], 11/02/2023 03:07:47 10/25/19 24 10/28/2023 COMP. METAB OLIC PANEL (14) sodium 142 mmol/ L 134-14 4 Not Available [facility] ([facility]) [address] [place], [address], 11/02/2023 03:07:47 10/25/19 24 10/28/2023 COMP. METAB OLIC PANEL (14) potassium 3.6 mmol/ L 3.5-5. 2 Not Available [facility] ([facility]) [address] [place], [address], 11/02/2023 03:07:47 10/25/19 24 10/28/2023 COMP. METAB OLIC PANEL (14) chloride 105 mmol/ L 96-106 Not Available [facility] ([facility]) [address] [place], [address], 11/02/2023 03:07:47 10/25/19 24 10/28/2023 COMP. METAB OLIC PANEL (14) carbon dioxide, total 19 mmol/ L 20-29 below low normal Not Available [facility] ([facility] [address] [place], [address], 11/02/2023 03:07:47 10/25/19 24 10/28/2023 COMP. METAB OLIC PANEL (14) calcium 9.9 mg/dL 8.7-10 .2 Not Available [facility] ([facility]) [address] [place], [address], 11/02/2023 03:07:47 10/25/19 24 10/28/2023 COMP. METAB OLIC PANEL (14) protein, total 7.2 g/dL 6.0-8. 5 Not Available [facility] ([facility]) [address] [place], [address], 11/02/2023 03:07:47 10/25/19 24 10/28/2023 COMP. METAB OLIC PANEL (14) albumin 4.8 g/dL 4.1-5. 1 Not Available [facility] ([facility]) [address] [place], [address], 11/02/2023 03:07:47 10/25/19 24 10/28/2023 COMP. METAB OLIC PANEL (14) globulin, total 2.4 g/dL 1.5-4. 5 Not Available [facility] ([facility]) [address] [place], [address], 11/02/2023 03:07:47 10/25/19 24 10/28/2023 COMP. METAB OLIC PANEL (14) A/G ratio 2.0 1.2-2. 2 Not Available [facility] ([facility]) [address] [place], [address], 11/02/2023 03:07:47 10/25/19 24 10/28/2023 COMP. METAB OLIC PANEL (14) bilirubin, total 0.8 mg/dL 0.0-1. 2 Not Available [facility] ([facility]) [address] [place], [address], 11/02/2023 03:07:47 10/25/19 24 10/28/2023 COMP. METAB OLIC PANEL (14) alkaline phosphatase 71 IU/L 44-121 Not Available [facility] ([facility]) [address] [facility] [place], [address], 11/02/2023 03:07:47 10/25/19 24 10/28/2023 COMP. METAB OLIC PANEL (14) AST (SGOT) 22 IU/L 0-40 Not Available [facility] ([facility]) [address] [place] [place], [address], 11/02/2023 03:07:47 10/25/19 24 10/28/2023 COMP. METAB OLIC PANEL (14) ALT (SGPT) 29 IU/L 0-44 Not Available [facility] ([facility]) [address] [place] [place], [address], 11/02/2023 03:07:47 10/25/19 24 10/28/2023 LIPID PANEL cholesterol, total 191 mg/dL 100-19 9 Not Available [facility] ([facility]) [address] [facility] [place], [address], 11/02/2023 03:07:48 10/25/19 10/28/2023 LIPID PANEL triglyceride s 96 mg/dL 0-149 Not Available [facility] ([facility]) [address] [place], [address], 11/02/2023 03:07:48 10/25/19 24 10/28/2023 LIPID PANEL HDL cholesterol 43 mg/dL >39 Not Available [facility] ([facility]) [address] [place], [address], 11/02/2023 03:07:48 10/25/19 24 10/28/2023 LIPID PANEL VLDL cholesterol ania 18 mg/dL 5-40 Not Available [facility] ([facility]) [address] [place], [address], 11/02/2023 03:07:48 10/25/19 24 10/28/2023 LIPID PANEL LDL chol calc ([facility]) 130 mg/dL 0-99 above high normal Not Available [facility] ([facility]) [address] [place], [address], 11/02/2023 03:07:48 10/25/1910/28/2023 LIPID PANEL comment: FIELD MARKETING DIRECTOR Not Available [facility] ([facility]) [address] [place], [address], 11/02/2023 03:07:48 10/25/19 24 11/02/2023 THYRO ID FUNCT ION ADULT TSH-icma 1.9 uu/mL Refer ence Range : Non-P regna nt Adult 0.450 -4.50 0 Not Available [facility] [address] [facility], [place], [address], 11/02/2023 03:07:49 10/25/19 24 11/02/2023 THYRO ID FUNCT ION ADULT thyroxine (T-4), serum 8.6 ug/dL Refer ence Range : Adult s: 4.2 - 13.0 Not Available [facility] [address] [place], [address], 11/02/2023 03:07:49 10/25/19 24 11/02/2023 THYRO ID FUNCT ION ADULT triiodothyro nine (T-3), serum 129 NG/dL Refer ence Range : Adult s: 55 - 170 Not Available [facility] [address] [facility], [place], [address], 11/02/2023 03:07:49 10/25/19 24 10/28/2023 HEMOG LOBIN A1C hemoglobin A1C 4.6 % 4.8-5. 6 below low normal Predi abete s: 5.7 - 6.4 Diabe otoniel: >6.4 Glyce fidelia contr ol for adult s with diabe otoniel: <7.0 Not Available [facility] ([facility]) [address] [facility], [place], [address], 11/02/2023 03:07:49 01/11/20 24 01/11/2024 US, abdom en No observ ation record ed. [email or web address] [facility] [address], [place], [address], 01/25/2024 08:43:17 Result Notes None recorded. Problems Name Problem SNOMED Code Status Onset Date Resolution Date Notes Provider Name and Address Organization Details Recorded Time Elevated blood-pressure reading without diagnosis of hypertension 693629698 Active 2023 CAROL Longoria [address], [facility] [address], [place], [address], Andela 4 15:56:38 Thrombocytopen ic disorder 923206529 Active 2023 CAROL Longoria [address], [address], [place], [address], Andela 4 12:25:45 Notes:Stress Problem Notes None recorded. [...] Date Recorded Body mass index (BMI) Body height Oxygen saturation Heart rate Body temperature Body weight Systolic And Diastolic Provider Name and Address Organization Details Last Updated DateTime 2 28.6 kg/m2 193.04 cm 98 % 75 /min 97.6 [degF] 422883. 21 g 118/72 mm[Hg] Not Available [facility] 3 05:52:52 Date Recorded Body mass index (BMI) Body height Oxygen saturation Heart rate Respiratory rate Body temperature Body weight Systolic And Diastolic Provider Name and Address Organization Details Last Updated DateTime 3 28.6 kg/m2 193.04 cm 98 % 61 /min 16 /min 97.7 [degF] 672385. 28 g 136/93 mm[Hg] Not Available [facility] 3 05:52:52 Date Recorded Body weight Body temperature Oxygen saturation Heart rate Systolic And Diastolic Provider Name and Address Organization Details Last Updated DateTime 4 953416. 61 g 97.9 [degF] 98 % 89 /min 148/74 mm[Hg] Eli Covarrubias RN [facility] [employer] 4 15:39:20 Date Recorded Body weight Body mass index (BMI) Body height Body temperature Heart rate Respiratory rate Oxygen saturation Pain severity - 0-10 verbal numeric rating [Score] - Reported Systolic And Diastolic Provider Name and Address Organization Details Last Updated DateTime 5 020100. 33 g 27.4 kg/m2 193.04 cm 97.1 [degF] 52 /min 20 /min 98 % 0 156/80 mm[Hg] Raeann Chowdhury RN [facility] [employer] 5 09:14:59 Social History Question Answer Notes LastModified by Organizat ion Details LastModified Time Tobacco Smoking Status Former Smoker Not Available [facility] 08/04/2022 05:51:01 Do You Have An Advance Directive? No Information not available 03/14/2025 What Is Your Level Of Caffeine Consumption? Moderate [id number] Information not available 08/04/2022 In The 14 [...] Type Of Diet Are You Following? REGULAR [id number].[id number] Information not available 08/04/2022 What Is The Highest Grade Or Level Of School You Have Completed Or The Highest Degree You Have Received? [id number] MIGRATION.40115 86264 Information not available 08/04/2022 Have There Been Any Changes To Your Family Or Social Situation? No MIGRATION.93243 83540 Information not available 08/04/2022 What Is The Fluoride Status Of Your Home? Unknown MIGRATION.50449 [id number] Information not available 08/04/2022 Do You Use Insect Repellent Routinely? No MIGRATION.90204 26626 Information not available 08/04/2022 Where Do You Live? [place] MIGRATION.14475 68901 Information not available 08/04/2022 Do You Have A Medical Power Of Jewelry Sales Coordinator? No Information not available 03/14/2025 How Many Children Do You Have? 1 Information not available 03/14/2025 Do You Have Any Pets? Yes [id number].38071 [id number] Information not available 08/04/2022 What Is Your Relationship Status? MIGRATION.95426 99715 Information not available 08/04/2022 Do You Use Your Seat Belt Or Car Seat Routinely? Yes MIGRATION.76908 87425 Information not available 08/04/2022 Do You Have Smoke And Carbon Monoxide Detectors In Your Home? Yes MIGRATION.08237 49540 Information not available 08/04/2022 At What Age Did You Start Smoking Tobacco? 24 [id number] Information not available 10/26/2023 Are You Passively Exposed To Smoke? No MIGRATION.69399 09172 Information not available 08/04/2022 Are There Any Smokers In Your House? No MIGRATION.17194 80917 Information not available 08/04/2022 Do You Use Sunscreen Routinely? Yes MIGRATION.36745 42454 Information not available 08/04/2022 Have You Recently Traveled Abroad? No Information not available 03/14/2025 Are You Currently In School? Yes MIGRATION.55024 92987 Information not available 08/04/2022 Do You Have Any Dietary Restrictions? No MIGRATION.21669 64428 Information not available 08/04/2022 Sex: Male Functional Status Question Answer Note LastModified by Organizat ion Details LastModified Time What is your level of alcohol consumption? 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 Moderate MIGRATION.[id number] 26 Information not available 08/04/2022 Mental Status Question Answer Note LastModified by Organizat ion Details LastModified Time Do you feel stressed (tense, restless, nervous, or anxious, or unable to sleep at night)? [id number] [id number] 6 Information not available 08/04/2022 Family History Relationship Description Onset Age of this Age Resolved Age Notes LastModified by Organization Details LastModified Time Father Myocardial infarction [id number] Not available 15:40:11 Paternal Grandfather Malignant neoplasm of esophagus [id number] Not available 15:40:36 Medical History No medical history recorded. Immunizations Vaccine Type Date Status Note Provider Nam e and Address Organization Details Recorded Time Tdap 5 completed Raeann Chowdhury RN [facility], [place] [employer] 03/14/2025 10:18:27 OPV, trivalent 8 completed Not Available [facility] 08/04/2022 05:56:47 DTaP 5 completed Not Available [facility] 08/04/2022 05:56:47 OPV, trivalent 2 completed Not Available [facility] 08/04/2022 05:56:47 DTaP 1 completed Not Available [facility] 08/04/2022 05:56:47 DTaP 1 completed Not Available [facility] 08/04/2022 05:56:47 OPV, trivalent 1 completed Not Available [facility] 08/04/2022 05:56:47 Hib, unspecified formulation 1 completed Not Available [facility] 08/04/2022 05:56:47 DTaP 1 completed Not Available [facility] 08/04/2022 05:56:47 OPV, trivalent 1 completed Not Available [facility] 08/04/2022 05:56:47 Influenza, split virus, quadrivalent, preservative 0 completed Not Available [facility] 08/04/2022 05:56:48 Tdap 5 completed Not Available [facility] 08/04/2022 05:56:48 Influenza, split virus, quadrivalent, PF 0 completed Raeann Chowdhury RN [facility], [place] - [facility] 03/14/2025 09:10:57 Past Encounters Encounter ID Performer Location Encounter Start Date Encounter Closed Date Diagnosis/Indication Diagnosis SNOMED-CT Code Diagnosis ICD10 Code Diagnosis IMO Codes Diagnosis Note [id number] Ludwin Padron MD [facility] [address] [place] [address] 06/23/2021 00:00:00 06/23/2021 10:03:46 [id number] Ludwin Padron MD [place] [address] [place] [address] 07/08/2022 00:00:00 07/08/2022 10:06:59 [id number] CAROL Longoria [facility] Primary Care [facility] [address] [facility] [address] [place] [address] 10/26/2023 15:32:01 10/26/2023 16:12:17 Elevated blood-pressure reading without diagnosis of hypertension 615354030 R03.0 -never been told he has high bp before-usu ally in the 120s over 86-148/74, 89 Adult heal th examination 897216150 Z00.00 Encouraged fresh fruits and veggies-me d intakeIncr ease daily water intake-1 gal/dayEnc ourage 30 mins of daily exercise-d aily Hyperlipid emia screening 996323316 Z13.220 Diabetes m ellitus screening 900524012 Z13.1 Thyroid di sorder screening 593700281 Z13.29 Anemia screening 9496946 07 Z13.0 [id number] Ludwin Padron MD S[facility] [address] [address] 03/14/2025 08:46:23 03/14/2025 10:12:13 Physical examination 8965082 Z00.00 877212 Patient is overall [facility] scussed diet and exercisePa tie questions answered Administra tion of tetanus vaccine 160735545 Z23 Health Concerns Section Related Observation LastModified by Organization Detai ls LastModified Time None Recorded Concern Status LastModified by Organization Details LastModified Time None Recorded Advance Directives Directive N: Payers Insurance Date Sequence Insurance Name Policy Number Policy Lemon Covered Member ID Lemon Member ID Guarantor Name 03/18/2025 1 [facility] [id number] Ramírez Avila [id number] Ramírez Aashish [place] 03/14/2025 1 [facility] (POS) [id number] Ramírez Avila [id number] Ramírez Avila Notes Date Note Type Note Provider Name and Address Organization Details Recorded Time 10/26/2023 text/html Pt is here for annual physical CAROL Longoria [address], [place], [address], [facility] 10/26/2023 16:07:55 03/14/2025 text/html Ramírez Avila is a 34 year old male patient here today to establish care. He is overall healthy. He was seen by hematology for elevated HGB, all labs resulted normal. BP is elevated today, this is abnormal for him. 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 Flu shot: declinesCOVID vaccines: x2Tdap: 2014 REGGIE Mejias [address], [place], [address], [place] [facility] 03/14/2025 10:00:00
--- OUTSIDE RECORDS SUMMARY | 2025-05-16 19:31 | XMS_ITS | Clinical Summary ---
Author Organization [facility] Molly Maldonadorain Address [address] [place] [address] Care Team Providers Care Travel Sales Consultant Name Role Phone Unavailable Primary Care Provider Unavailabl e Allergies No known active allergies Medications multivitamin (DAILY-TOMI) tablet Take 1 Tablet by mouth daily. Active Active Problems No known active problems Encounters Date Type Department Care Team Description 05/07/2025 External Device Data ST[facility] ABSTRACTION Provider, Abstract 03/26/2025 External Device Data [facility] ABSTRACTION Provider, Abstract [...] Comments Blood Pressure 161/82 07/13/2024 11:38 AM NOVELTY TWISTER OPERATOR Pulse 60 07/13/2024 11:38 AM NOVELTY TWISTER OPERATOR Temperature 36.6 C (97.8 F) 07/13/2024 11:38 AM NOVELTY TWISTER OPERATOR Respiratory Rate 16 07/13/2024 11:38 AM NOVELTY TWISTER OPERATOR Oxygen Saturation 98% 07/13/2024 11:38 AM NOVELTY TWISTER OPERATOR Inhaled Oxygen Concentration - - Weight 106.6 kg (235 lb) 07/13/2024 11:38 AM NOVELTY TWISTER OPERATOR Height 193 cm (6' 4) 12/28/2023 1:48 PM CDT Body Mass Index 28.61 12/28/2023 1:48 PM CDT Plan of Treatment Upcoming Encounters Date Type Department Care Team (Late st Contact Info) Description 07/17/2025 10:00 AM NOVELTY TWISTER OPERATOR Office Visit [facility] Oncology and Hematology - [place] [address] [facility] [address] [place] [address] Timi Fairbanks MD [address] [facility] [address] [place] [address] Health Maintenance Due Date Last Done Comments Pre-Diabetes and Diabetes Screening 1990 HEPATITIS B VACCINES (1 of 3 - 19+ 3-dose series) 2009 INFLUENZA VACCINE (#1) 2025 02/25/2020, 2019 DTAP/TDAP/TD VACCINES (6 - T d or Tdap) 04/06/2025 04/06/2015, 02/14/1995, 1990, Additional history exists HPV VACCINES (No Doses Required) Completed Insurance [facility] [employer] PPO [id number]
== END 2025-05-16 17:56 | disposition home or self-care (01) ==
PROVIDERS: Emergency Provider Emergency Medicine
DX: S06.0X0A Concussion without loss of consciousness, initial encounter (principal); W22.8XXA Striking against or struck by other objects, initial encounter
CPT/HCPCS: 70450; 99284

== ENCOUNTER 2025-05-20 08:16 | Emergency (ER) | payer OTHER, SELFPAY ==
[2025-05-20 08:26] VITALS: BP 152/95; PULSE 72; RESP 18; TEMP 37.2; O2SAT 100
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
== END 2025-05-20 09:06 | disposition home or self-care (01) ==
DX: S09.90XA Unspecified injury of head, initial encounter (principal); W22.8XXA Striking against or struck by other objects, initial encounter; Y99.0 Civilian activity done for income or pay
CPT/HCPCS: 99211; G0463